=== PATIENT | male | born 1995 | race Caucasian/White ===

== ENCOUNTER 2017-07-18 12:43 | Emergency (ER) | payer BC ==
[2017-07-18 15:04] LABS: MONO NEGATIVE CONTROL ZONE White (Negative) (White); MONO POSITIVE CONTROL Pink Line (Positive) (PINK/RED); Mononucleosis NEGATIVE (NEGATIVE)
[2017-07-18 15:06] LABS: PTT 26.3 SEC (22.9-36.1); Prothrombin Time 13.4 SEC (12.0-14.7)
[2017-07-18 15:23] LABS: ALT (SGPT) 58 U/L (8-55); AST (SGOT) 40 U/L (10-45); Albumin 4.8 g/dL (3.5-5.0); Alkaline Phosphatase 74 U/L (Less than 750); Anion Gap 16 mmol/L (10-20); BUN (Urea Nitrogen) 11 mg/dL (8.4-21.0); Bilirubin, Total 0.6 mg/dL (0.2-1.2); CK (CPK) 99 U/L (30-200); CRP (Inflammatory) 2.23 mg/dL (= or < 0.5); Calc. Creatinine Clearance 0 mL/min (70-130); Calcium 9.9 mg/dL (7.8-10.44); Carbon Dioxide 21 mmol/L (22-29); Chloride 106 mmol/L (98-107); Estimated GFR-MDRD Greater than 90; Globulin 2.9 g/dL (2.4-3.5); Glucose 87 mg/dL (70-105); Potassium 4.2 mmol/L (3.5-5.1); Protein, Total 7.7 g/dL (6.0-8.3); Sodium 139 mmol/L (136-145)
[2017-07-18 15:36] LABS: Bilirubin Negative (Negative); Blood, Urine Negative (Negative); Clarity CLEAR (Clear); Glucose, Urine (Dipstick) Negative (Negative); Leukocyte Negative (Negative); Nitrite Negative (Negative); Protein, Urine (Dipstick) Negative (Neg-Trace); Specific Gravity, Urine 1.016 (1.002-1.036); pH, Urine 7.5 (5.0-9.0)
== END 2017-07-18 15:53 ==
LOC: ERS 12:43
DX: B08.4 Enteroviral vesicular stomatitis with exanthem (principal)
CPT/HCPCS: 36415; 80053; 81003; 82550; 85610; 85652; 85730; 86140; 86308; 87081; 87430; 99283